=== PATIENT | female | born 1945 ===

== ENCOUNTER → 2018-01-28 18:57 | Outpatient (REF) | payer OTHER, SELFPAY | LOC: LAB 18:57 | PROVIDERS: Visit Provider Physician Assistant | DX: Z48.817 Encounter for surgical aftercare following surgery on the skin and subcutaneous tissue (principal) | CPT/HCPCS: 87070; 87075; 87077; 87147; 87186; 87205 ==

== ENCOUNTER → 2018-02-22 13:18 | Outpatient (REF) | payer OTHER, SELFPAY | LOC: LAB 13:18 | PROVIDERS: Visit Provider Physician Assistant | DX: Z48.817 Encounter for surgical aftercare following surgery on the skin and subcutaneous tissue (principal); L53.8 Other specified erythematous conditions | CPT/HCPCS: 87070; 87077; 87186; 87205 ==